=== PATIENT | female | born 1955 | race Caucasian/White ===

== ENCOUNTER → 2017-01-25 | Outpatient (CLI) | payer BC ==
[2017-01-25 13:48] LABS: BLOOD UREA NITROGEN 16 MG/DL (7-18); CREATININE FOR GFR 0.74 MG/DL (0.55-1.02); GLOMERULAR FILTRATION RATE > 60.0 (>45)
== END ==
LOC: M LAB 11:40
PROVIDERS: ATTEND Obstetrics & Gynecology
DX: Z80.3 Family history of malignant neoplasm of breast (principal)

== ENCOUNTER → 2017-03-18 | Outpatient (CLI) | payer BC | LOC: M LAB 14:58 | PROVIDERS: ATTEND Physician Assistant Surgical | DX: R31.9 Hematuria, unspecified (principal); R89.6 Abnormal cytological findings in specimens from other organs, systems and tissues ==

== ENCOUNTER → 2018-01-16 | Outpatient (CLI) | payer BC ==
[2018-01-16 13:24] LABS: APPEARANCE, URINE CLEAR (CLEAR); BACTERIA, URINE AUTO NEGATIVE (NEGATIVE); BILIRUBIN, URINE AUTO NEGATIVE (NEGATIVE); BLOOD, URINE BLOOD 2+ (NEGATIVE); COLOR, URINE COLORLESS (YELLOW); GLUCOSE, URINE (UA) AUTO NEGATIVE (NEGATIVE); KETONE, URINE AUTO NEGATIVE (NEGATIVE); LEUKOCYTE ESTERASE, URINE AUTO NEGATIVE (NEGATIVE); NITRITE, URINE AUTO NEGATIVE (NEGATIVE); PROTEIN, URINE AUTO NEGATIVE (NEGATIVE); RBC, URINE AUTO 4 /HPF (0-3); SPECIFIC GRAVITY URINE AUTO 1.006 (1.002-1.035); SQUAMOUS EPITHELIAL CELL UR AU 0 /HPF (0-6); UROBILINOGEN, URINE AUTO 0.2 mg/dL (0.0-2.0); WBC, URINE AUTO 0 /HPF (0-3)
== END ==
LOC: M LAB 12:23
DX: R31.9 Hematuria, unspecified (principal); R89.6 Abnormal cytological findings in specimens from other organs, systems and tissues

== ENCOUNTER 2021-08-10 08:45 | Outpatient (RCR) | payer OTHER | END 2021-08-15 | LOC: M PT 08:45 | PROVIDERS: ATTEND Nurse Practitioner Family | DX: I89.0 Lymphedema, not elsewhere classified (principal) ==

== ENCOUNTER 2021-09-11 10:38 | Outpatient (RCR) | payer OTHER | END 2021-09-15 | LOC: M PT 10:38 | PROVIDERS: ATTEND Nurse Practitioner Family | DX: I89.0 Lymphedema, not elsewhere classified (principal) ==

== ENCOUNTER 2022-03-15 10:36 | Outpatient (RCR) | payer OTHER | END 2022-03-17 | LOC: M PT 10:36 | PROVIDERS: ATTEND Nurse Practitioner Family | DX: I89.0 Lymphedema, not elsewhere classified (principal) ==